=== PATIENT | male | born 1935 | race Caucasian/White ===

== ENCOUNTER 2021-10-31 18:29 | Inpatient (IN) | payer MEDICARE, OTHER ==
[~2021-10-31] VITALS: Ht 177.8 cm; Wt 90.7 kg
[2021-10-31] MEDS ORDERED: IV NORMAL SALINE 1000 ML BAG IV ONE (18:30)
[2021-10-31] MEDS ORDERED: DEXTROSE 50% 50 ML DISP.SYRIN IV ONE (18:30)
[2021-10-31] MEDS ORDERED: CARVEDILOL (18:38)
[2021-10-31] MEDS ORDERED: DOCUSATE SODIUM (18:38)
[2021-10-31] MEDS ORDERED: BUPR-319 PO (18:38)
[2021-10-31] MEDS ORDERED: AMIO100T4 PO (18:39)
[2021-10-31] MEDS ORDERED: DEXTROSE 50% 50 ML DISP.SYRIN ONE (18:39)
[2021-10-31] MEDS ORDERED: FINA5TAB11 PO (18:39)
[2021-10-31] MEDS ORDERED: PRAVASTATIN (18:39)
[2021-10-31] MEDS ORDERED: NATE120T6 PO (18:40)
[2021-10-31] MEDS ORDERED: [UNRECOGNIZED DRUG - OTHER] (18:40)
[2021-10-31] MEDS ORDERED: RENA VITE (18:40)
[2021-10-31] MEDS ORDERED: FOLI0.8T2 PO (18:41)
[2021-10-31] MEDS ORDERED: SENN-261 PO (18:41)
[2021-10-31] MEDS ORDERED: EMPA25TA PO (18:41)
[2021-10-31] MEDS ORDERED: BUPR-53 PO (18:45)
[2021-10-31] MEDS ORDERED: CARV12.52 PO (18:45)
[2021-10-31] MEDS ORDERED: LISI40TA13 PO (18:45)
[2021-10-31] MEDS ORDERED: CLOP75TA33 PO (18:45)
[2021-10-31] MEDS ORDERED: AMLO2.5T4 PO (18:45)
[2021-10-31] MEDS ORDERED: MULT1CAP34 PO (18:47)
[2021-10-31] MEDS ORDERED: PRAV40TA3 PO (18:47)
[2021-10-31] MEDS ORDERED: ESOM40CA52 PO (18:47)
[2021-10-31] MEDS ORDERED: CHOL50004 PO (18:49)
[2021-10-31] MEDS ORDERED: TAMS0.4C34 PO (18:49)
[2021-10-31] MEDS ORDERED: DICLOFENAC TOP (18:51)
[2021-10-31 19:00] LABS: HEMATOCRIT 35.1 % (36.7-47.1); MEAN CORPUSCULAR VOLUME 85.1 fL (73.0-96.2); PLATELET COUNT (AUTO) 362 K/uL (152-348)
--- NOTE | 2021-10-31 19:00 | NUR ---
Received report. Patient at CT scan right now.
[2021-10-31 19:10] LABS: CARBON DIOXIDE 24 mmol/L (21-32); CHLORIDE 105 mmol/L (98-107); CREATININE 2.5 mg/dL (0.6-1.3); GLUCOSE 90 mg/dL (74-106); POTASSIUM 4.3 mmol/L (3.5-5.1); UREA NITROGEN, BLOOD 27 mg/dL (7-18)
--- NOTE | 2021-10-31 19:15 | NUR ---
Patient came back from CT scan.
[2021-10-31 19:16] LABS: *BILIRUBIN,URIN NEGATIVE (NEGATIVE); *BLOOD, URINE NEGATIVE (NEGATIVE); *CLARITY,URINE CLEAR (CLEAR); *COLOR,URINE YELLOW (YELLOW); *KETONES,URINE NEGATIVE (NEGATIVE); *UROBILINOGEN,URINE 0.2 E.U./dl (NORMAL); LEUKOCYTE ESTERASE ,URINE NEGATIVE (NEGATIVE); NITRITE, URINE NEGATIVE (NEGATIVE); PH,URINE 5.5 (5.0-8.0); UGLUCOSE 1+ (NEGATIVE)
[2021-10-31 19:18] LABS: ALANINE AMINOTRANSFERASE 23 U/L (16-63); ALKALINE PHOSPHATASE 55 U/L (50-136); ASPARTATE AMINOTRANSFERASE 7 U/L (15-37); BILIRUBIN,DIRECT 0.1 mg/dL (0.0-0.2); BILIRUBIN,TOTAL 0.4 mg/dL (0.2-1.0); TOTAL PROTEIN, SERUM 6.3 g/dL (6.4-8.2)
[2021-10-31 19:25] LABS: ETHANOL < 3 MG/DL (0-0)
[2021-10-31 19:40] LABS: MAGNESIUM 1.7 mg/dL (1.8-2.4)
[2021-10-31] MEDS ORDERED: CYANOCOBALAMIN 1000 MCG/ML VIAL IM ONE (20:30)
[2021-10-31] MEDS ORDERED: MAGNESIUM SULFATE/D5W 100 ML ONE (20:40)
[2021-10-31] MEDS ORDERED: CYANOCOBALAMIN 1000 MCG/ML VIAL ONE (20:40)
[2021-10-31] MEDS ORDERED: MAGNESIUM SULFATE/D5W 200 ML ONE (20:41)
[2021-10-31] MEDS: MAGNESIUM SULFATE/D5W 100 ML IV SCH ×3 (20:45→22:41)
--- NOTE | 2021-10-31 22:09 | NUR ---
called [facility] for panel call
--- NOTE | 2021-10-31 22:20 | NUR ---
Dr. North on panel call with Eagle Frausto NP.
--- NOTE | 2021-10-31 22:24 | NUR ---
Called [facility] floor and spoke with Lawrence, patient will be place to Room 308.
[2021-10-31] MEDS ORDERED: INSULIN REGULAR, HUMAN 300 UNIT/3 ML VIAL SQ PRN (22:45)
[2021-10-31] MEDS ORDERED: ONDANSETRON 4 MG/2 ML VIAL IV PRN (22:45)
[2021-10-31] MEDS ORDERED: REMEDY ESSENTIAL ZINC PASTE 113 GM TP PRN (22:45)
[2021-10-31] MEDS ORDERED: ACETAMINOPHEN 325 MG TABLET PO PRN (22:45)
[2021-10-31] MEDS ORDERED: DEXTROSE 50% 50 ML DISP.SYRIN IV PRN (22:45)
--- NOTE | 2021-10-31 23:25 | NUR ---
Report given to EUSEBIA Wyatt.
--- NOTE | 2021-10-31 23:50 | NUR ---
Patient admitted to [facility], transported to Room 308 via gurney, without any incident. Belongings list completed.
[2021-11-01] MEDS: BLOOD SUGAR DIAGNOSTIC 1 EACH STRIP VI SCH ×7 (00:16→11:38)
[2021-11-01 00:35] VITALS: BP 134/53
[2021-11-01 04:00] VITALS: BP 124/54
[2021-11-01 06:17] LABS: HEMATOCRIT 29.9 % (36.7-47.1); MEAN CORPUSCULAR HEMOGLOBIN 27.7 uug (23.8-33.4); MEAN CORPUSCULAR VOLUME 83.4 fL (73.0-96.2); PLATELET COUNT (AUTO) 331 K/uL (152-348)
[2021-11-01 06:22] LABS: NEUTROPHILS % (MANUAL) 0 % (42-75)
[2021-11-01 06:49] LABS: CARBON DIOXIDE 25 mmol/L (21-32); CHLORIDE 105 mmol/L (98-107); CHOLESTEROL 146 mg/dL (<200); CREATININE 2.5 mg/dL (0.6-1.3); GLUCOSE 123 mg/dL (74-106); HDL CHOLESTEROL 46 mg/dL (40-60); MAGNESIUM 2.4 mg/dL (1.8-2.4); PHOSPHOROUS 3.1 mg/dL (2.5-4.9); POTASSIUM 4.4 mmol/L (3.5-5.1); TRIGLYCERIDES 104 MG/DL (30-150); UREA NITROGEN, BLOOD 28 mg/dL (7-18)
[2021-11-01] MEDS ORDERED: PANTOPRAZOLE SODIUM 40 MG TABLET.DR PO SCH (07:00)
--- NOTE | 2021-11-01 08:00 | NUR ---
awake alert and oriented, very pleasant, denies of any discomfort, explained plan of care- verbalized understanding, no s/s of hypoglycemia noted, breakfast tray was served- ate good, safety measures maintained, call light within reach
[2021-11-01] MEDS ORDERED: HEPARIN SODIUM,PORCINE 5,000 UNITS/ML VIAL SQ SCH (09:00)
[2021-11-01] MEDS ORDERED: DOCU100C36 PO (09:58)
[2021-11-01] MEDS ORDERED: PANT40TA49 PO (10:01)
[2021-11-01] MEDS ORDERED: METF-886 PO (10:02)
--- NOTE | 2021-11-01 11:30 | NUR ---
Dr Matias called and updated on pt's condition.
[2021-11-01 11:57] VITALS: BP 133/59
--- NOTE | 2021-11-01 12:00 | NUR ---
BS 194- covered with insulin regular sliding scale as ordered- lunch served and ate well
--- NOTE | 2021-11-01 15:30 | NUR ---
Lorenzo Cole saw pt - to go home
[2021-11-01 16:02] VITALS: BP 138/63
[2021-11-01] MEDS ORDERED: BLOOD SUGAR DIAGNOSTIC 1 EACH STRIP VI SCH (16:30)
--- NOTE | 2021-11-01 16:30 | NUR ---
family called and informed pt that pt can go home- will be here to pick him up
--- NOTE | 2021-11-01 16:50 | NUR ---
discharge instructions given- verbalized understanding, saline lock removed- no swelling/redness noted on site, blood sugar done -136-not covered since haven't taken dinner yet, states will eat at home, escorted to car per w/c with all belongings in stable condition
== END 2021-11-01 20:22 | disposition home or self-care (01) | DRG 637 ==
LOC: ER 18:29 → MEDSURG3 23:29
PROVIDERS: ADMIT Nurse Practitioner Acute Care; ATTEND Nurse Practitioner Acute Care
DX: E11.649 Type 2 diabetes mellitus with hypoglycemia without coma (principal); G93.41 Metabolic encephalopathy; I50.32 Chronic diastolic (congestive) heart failure; I13.0 Hypertensive heart and chronic kidney disease with heart failure and stage 1 through stage 4 chronic kidney disease, or unspecified chronic kidney disease; Z20.822 Contact with and (suspected) exposure to COVID-19; D63.8 Anemia in other chronic diseases classified elsewhere; D72.829 Elevated white blood cell count, unspecified; E78.5 Hyperlipidemia, unspecified; I25.10 Atherosclerotic heart disease of native coronary artery without angina pectoris; I25.2 Old myocardial infarction; I48.91 Unspecified atrial fibrillation; K21.9 Gastro-esophageal reflux disease without esophagitis; N17.9 Acute kidney failure, unspecified; M19.90 Unspecified osteoarthritis, unspecified site; N18.9 Chronic kidney disease, unspecified; Z86.73 Personal history of transient ischemic attack (TIA), and cerebral infarction without residual deficits; Z87.440 Personal history of urinary (tract) infections; N40.0 Benign prostatic hyperplasia without lower urinary tract symptoms; F43.9 Reaction to severe stress, unspecified; Z79.84 Long term (current) use of oral hypoglycemic drugs; E11.22 Type 2 diabetes mellitus with diabetic chronic kidney disease; T38.3X5A Adverse effect of insulin and oral hypoglycemic [antidiabetic] drugs, initial encounter; Y92.009 Unspecified place in unspecified non-institutional (private) residence as the place of occurrence of the external cause
CPT/HCPCS: 36415; 70030-TC; 70450; 71045; 83605; 83735; 83921; 84100; 84484; 85025; 85730; 87040; 93005; A4663; C1758; G0378; G0480; J1644; J1815; J3420; J3475; J3490; J7040